=== PATIENT | female | born 1990 | race Caucasian/White ===

== ENCOUNTER 2019-03-29 09:43 | Outpatient (CLI) | payer BC ==
--- NOTE | 2019-03-29 10:16 | RAD ---
XR Lumbar Spine Min 4 View HISTORY: Low back and left leg pain COMPARISON: None. FINDINGS: The vertebral bodies are normal in height. Disc spaces appear well preserved. No abnormal m otion seen in flexion or extension. Pedicles are intact. IMPRESSION: Unremarkable lumbar spine series.
== END 2019-03-29 09:44 | disposition home or self-care (01) ==
LOC: TBSIIMAG 09:43
PROVIDERS: ATTEND Neurological Surgery
DX: M54.16 Radiculopathy, lumbar region (principal)
CPT/HCPCS: 72110

== ENCOUNTER 2019-04-09 09:10 | Outpatient (CLI) | payer BC ==
--- NOTE | 2019-04-09 09:58 | CT ---
Lumbar spine CT without contrast: 04/09/2018 COMPARISON: None HISTORY: Low back pain with left lower extremity radiculopathy TECHNIQUE: Axial CT imaging at 3 mm intervals through the lumbar spine without contrast. Coronal and sagittal reformatted imaging obtained. FINDINGS: Evaluation for central canal and neural foraminal stenosis is limited on routine CT. Lumbar vertebral body height and alignment appears normal. No lytic or blastic bone lesion. No acute fracture or evidence of dislocation. T12-L1: No osseous cause of significant central canal or neural foraminal stenosis. L1-2: No osseous cause of significant central canal or neural foraminal stenosis. L2-3: No osseous cause of significant central canal or neural foraminal stenosis. L3-4: No osseous cause of significant central canal or neural foraminal stenosis. L4-5: No osseous cause of significant central canal or neural foraminal stenosis. L5-S1: Mild facet hypertrophy on the left. Mild left neural foraminal stenosis. No osseous cause of s ignificant central canal or right neural foraminal stenosis. The extra spinal structures appear grossly unremarkable. IMPRESSION: Mild degenerative change. No acute osseous abnormality. Recommend MRI of the lumbar spine if radicular symptoms persist.
== END 2019-04-09 09:11 | disposition home or self-care (01) ==
LOC: TBSIIMAG 09:10
PROVIDERS: ATTEND Neurological Surgery
DX: M54.9 Dorsalgia, unspecified (principal); M47.816 Spondylosis without myelopathy or radiculopathy, lumbar region
CPT/HCPCS: 72131